=== PATIENT | female | born 1975 | race Caucasian/White ===

== ENCOUNTER → 2016-03-03 | Outpatient (CLI) | payer MEDICAID ==
--- NOTE | 2016-03-03 14:28 | XR ---
EXAMINATION TYPE: XR chest 2V DATE OF EXAM: 03/03/2016 2:24 PM COMPARISON: NONE HISTORY: Chest pain FINDINGS: The lungs are clear and there is no pneumothorax, pleural effusion, or focal pneumonia. Surgical cl ips in the right upper quadrant noted. IMPRESSION: 1. No acute process.
== END | disposition home or self-care (01) ==
LOC: RADXRMAIN 14:06
PROVIDERS: ATTEND Family Medicine
DX: R07.9 Chest pain, unspecified (principal)
CPT/HCPCS: 71020

== ENCOUNTER → 2016-09-24 | Outpatient (CLI) | payer MEDICAID ==
--- NOTE | 2016-09-24 10:09 | MM ---
Reason for exam: screening (asymptomatic). Baseline mammogram. History: Patient is nulliparous. Family history of breast cancer in paternal grandmother at age 80. Took hormonal contraceptives for 12 years. Physical Findings: Nurse did not find any significant physical abnormalities on exam. MG 3D Screening Mammo W/Cad Bilateral CC and MLO view(s) were taken. There are scattered fibroglandular densities. There is no discrete abnormality. These results were verbally communicated with the patient and result sheet given to the patient on 09/24/16. ASSESSMENT: Negative, BI-RAD 1 RECOMMENDATION: Routine screening mammogram of both breasts in 1 year.
== END | disposition home or self-care (01) ==
LOC: RADMAMWWP 07:45
PROVIDERS: ATTEND Family Medicine
DX: Z12.31 Encounter for screening mammogram for malignant neoplasm of breast (principal)
CPT/HCPCS: 77063; G0202

== ENCOUNTER → 2018-09-21 | Outpatient (CLI) | payer MEDICAID ==
[2018-09-21 12:40] LABS: Basophils # (A) 0.1 k/uL (0-0.2); Basophils % (A) 1 %; Eosinophils # (A) 0.2 k/uL (0-0.7); Eosinophils % (A) 2 %; HCT 43.2 % (34.0-46.0); HGB 14.6 gm/dL (11.4-16.0); Lymphocytes # (A) 2.1 k/uL (1.0-4.8); Lymphocytes % (A) 20 %; MCH 30.2 pg (25.0-35.0); MCHC 33.8 g/dL (31.0-37.0); MCV 89.3 fL (80.0-100.0); Mean Platelet Volume 6.9; Monocytes # (A) 0.4 k/uL (0-1.0); Monocytes % (A) 4 %; Neutrophils # (A) 7.6 k/uL (1.3-7.7); Neutrophils % (A) 72 %; Platelet Count 284 k/uL (150-450); RBC 4.84 m/uL (3.80-5.40); RDW 15.1 % (11.5-15.5); WBC 10.5 k/uL (3.8-10.6)
[2018-09-21 14:37] LABS: Erythrocyte Sedimentation Rate 26 mm/hr (0-20)
[2018-09-21 18:12] LABS: African American GFR (CKD) 122.1 (60.0-200.0); Albumin 4.5 g/dL (3.80-4.90); Albumin/Globulin Ratio 1.8 (1.60-3.17); Anion Gap 10.5 mmol/L (4.00-12.00); BUN/Creat Ratio 17.14 Ratio (12.00-20.00); Calcium 9.8 mg/dL (8.7-10.3); Carbon Dioxide 27.5 mmol/L (21.6-31.8); Globulin 2.5 g/dL (1.6-3.3); Magnesium 1.6 mg/dL (1.5-2.4); Potassium 3.8 mmol/L (3.5-5.5); Total Bilirubin 0.4 mg/dL (0.3-1.2)
== END | disposition home or self-care (01) ==
LOC: LABWHC1 11:49
PROVIDERS: ATTEND Family Medicine
DX: R53.83 Other fatigue (principal); R00.2 Palpitations
CPT/HCPCS: 36415; 80053; 82607; 83735; 84443; 85025; 85652

== ENCOUNTER → 2018-09-28 | Outpatient (CLI) | payer MEDICAID ==
--- NOTE | 2018-09-28 14:24 | EST ---
EXERCISE STRESS AGE: 43 SEX: F HT: 65" WT: 250 PROTOCOL: Rubén Stress Test STAGE: II DURATION OF EXERCISE: 6:00 HEART RATE REST: 121 BLOOD PRESSURE REST: 131/99 MAXIMUM HEART RATE ACHIEVED: 177 MAXIMUM BLOOD PRESSURE: 185/79 85% MPHR: 150 100% MPHR: 176 METS: 7.3 INDICATIONS: Palpitations, abnormal EKG. CLINICAL INFORMATION: Baseline EKG revealed normal sinus rhythm without significant ST changes. Patient walked on a standard Rubén protocol for 6 minutes, achieved a maximal heart rate of 170 beats per minute, well above 85% of predicted maximum. Developed fatigue and shortness of breath. Rare PVCs were noted. There was no ST-segment change to indicate ischemia. There was no arrhythmia. By EKG criteria, this is a negative stress test with limited exercise capacity. Patient walked for 6 minutes. Maximal heart rate was nearly 175 beats per minute. MMVIKL / IJN: [id number] /
--- NOTE | 2018-10-04 10:30 | HM ---
HOLTER MONITOR REPORT A 24 HOLTER MONITOR: A 24 Holter monitor shows sinus mechanism with heart rates ranging from 58-164 beats per minute, average 92 beats per minute. Sinus tachycardia noted. No significant arrhythmias. Occasional premature beats. SHAISTA / NICOLEN: [id number] /
--- NOTE | 2018-10-06 09:24 | P.HOLTER ---
48 hour Holter monitor. This is an addendum 48 hour Holter monitor showed heart rates ranging from 58 264 beats a minute average 92 beats a minute. Sinus tachycardia noted. No significant bradyarrhythmias. Occasional premature beats The previous dictation which stated 24 hour Holter monitor was actually a 48 are Holter monitor review and dictation of results
== END | disposition home or self-care (01) ==
LOC: RADNMMAIN 10:39
PROVIDERS: ATTEND Family Medicine
DX: I49.3 Ventricular premature depolarization (principal); R00.0 Tachycardia, unspecified; R06.02 Shortness of breath; R53.83 Other fatigue; R94.31 Abnormal electrocardiogram [ECG] [EKG]
CPT/HCPCS: 93017; 93225; 93226

== ENCOUNTER → 2018-10-12 | Outpatient (CLI) | payer MEDICAID ==
--- NOTE | 2018-10-13 11:32 | ECHOF ---
Referral Reason:R94.31 Abn EKG,R00.2 Palpitations,R53.83 Fatigue MEASUREMENTS -------- HEIGHT: 165.1 cm WEIGHT: 113.4 kg BP: 135/77 IVSd: 1.1 cm (0.6 - 1.1) LVIDd: 3.9 cm (3.9 - 5.3) LVPWd: 1.1 cm (0.6 - 1.1) IVSs: 1.4 cm LVIDs: 2.7 cm LVPWs: 1.4 cm LA Diam: 3.0 cm (2.7 - 3.8) RVIDd: 2.9 cm (< 3.3) LAESV Index (A-L): 15.29 ml/m Ao Diam: 3.2 cm (2.0 - 3.7) AV Cusp: 2.2 cm (1.5 - 2.6) EPSS: 0.8 cm MV E Jah: 0.54 m/s MV DecT: 276 ms MV A Jah: 0.58 m/s MV E/A Ratio: 0.94 MV EF SLOPE: 39.87 mm/s (70 - 150) MV EXCURSION: 11.54 mm (> 18.000) FINDINGS -------- Sinus rhythm. This was a technically adequate study. The left ventricular size is normal. There is borderline concentric left ventricular hypertrophy. Overall left ventricular systolic function is normal with, an EF between 60 - 65 %. The right ventricle is normal in size. Normal LA size by volume 22+/-6 ml/m2. The right atrium is normal in size. The aortic valve is trileaflet and appears structurally normal. The mitral valve is normal. The tricuspid valve appears structurally normal. Trace/mild (physiologic) pulmonic regurgitation. The aortic root size is normal. IVC Not well visulized. There is no pericardial effusion. CONCLUSIONS -------- 1. Sinus rhythm. 2. This was a technically adequate study. 3. The left ventricular size is normal. 4. There is borderline concentric left ventricular hypertrophy. 5. Overall left ventricular systolic function is normal with, an EF between 60 - 65 %. 6. The right ventricle is normal in size. 7. Normal LA size by volume 22+/-6 ml/m2. 8. The right atrium is normal in size. 9. The aortic valve is trileaflet and appears structurally normal. 10. The mitral valve is normal. 11. The tricuspid valve appears structurally normal. 12. Trace/mild (physiologic) pulmonic regurgitation. 13. The aortic root size is normal. 14. IVC Not well visulized. 15. There is no pericardial effusion. GOLD PLATER: Elizabeth Stevens RDCS
== END | disposition home or self-care (01) ==
LOC: RADECHMAIN 15:29
PROVIDERS: ATTEND Family Medicine
DX: I37.1 Nonrheumatic pulmonary valve insufficiency (principal)
CPT/HCPCS: 93306

== ENCOUNTER → 2019-03-07 | Outpatient (CLI) | payer OTHER ==
[2019-03-07 11:22] LABS: Basophils # (A) 0.1 k/uL (0-0.2); Basophils % (A) 1 %; Eosinophils # (A) 0.3 k/uL (0-0.7); Eosinophils % (A) 3 %; HCT 43.2 % (34.0-46.0); HGB 14.5 gm/dL (11.4-16.0); Lymphocytes % (A) 21 %; MCH 30.7 pg (25.0-35.0); MCHC 33.5 g/dL (31.0-37.0); MCV 91.6 fL (80.0-100.0); Mean Platelet Volume 7.1; Monocytes # (A) 0.4 k/uL (0-1.0); Monocytes % (A) 5 %; Neutrophils # (A) 6.3 k/uL (1.3-7.7); Neutrophils % (A) 69 %; Platelet Count 278 k/uL (150-450); RBC 4.72 m/uL (3.80-5.40); WBC 9.2 k/uL (3.8-10.6)
[2019-03-07 16:00] LABS: African American GFR (CKD) 103.9 (60.0-200.0); Albumin 4.6 g/dL (3.80-4.90); Anion Gap 8.5 mmol/L (4.00-12.00); Calcium 9.9 mg/dL (8.7-10.3); Carbon Dioxide 29.5 mmol/L (21.6-31.8); Globulin 2.3 g/dL (1.6-3.3); Non-African American GFR(CKD) 89.7 (60.0-200.0); Potassium 4.1 mmol/L (3.5-5.5); Total Bilirubin 0.4 mg/dL (0.2-1.2); Total Protein 6.9 g/dL (6.2-8.2)
== END | disposition home or self-care (01) ==
LOC: LABWHC1 10:38
PROVIDERS: ATTEND Family Medicine
DX: R00.0 Tachycardia, unspecified (principal)
CPT/HCPCS: 36415; 80053; 84443; 85025

== ENCOUNTER → 2019-10-20 | Outpatient (CLI) | payer OTHER ==
[2019-10-20 12:22] LABS: Basophils # (A) 0.1 k/uL (0-0.2); Basophils % (A) 1 %; Eosinophils # (A) 0.2 k/uL (0-0.7); Eosinophils % (A) 2 %; HCT 42.6 % (34.0-46.0); Lymphocytes # (A) 1.9 k/uL (1.0-4.8); Lymphocytes % (A) 19 %; MCH 30.2 pg (25.0-35.0); MCV 91.5 fL (80.0-100.0); Mean Platelet Volume 7.6; Monocytes # (A) 0.4 k/uL (0-1.0); Monocytes % (A) 4 %; Neutrophils # (A) 7.1 k/uL (1.3-7.7); Neutrophils % (A) 72 %; Platelet Count 258 k/uL (150-450); RBC 4.65 m/uL (3.80-5.40); RDW 13.4 % (11.5-15.5); WBC 9.8 k/uL (3.8-10.6)
[2019-10-20 16:23] LABS: African American GFR (CKD) 121.3 (60.0-200.0); Albumin 4.2 g/dL (3.80-4.90); Albumin/Globulin Ratio 1.62 (1.60-3.17); BUN/Creat Ratio 17.14 Ratio (12.00-20.00); Calcium 9.3 mg/dL (8.7-10.3); Globulin 2.6 g/dL (1.6-3.3); Non-African American GFR(CKD) 104.6 (60.0-200.0); Total Bilirubin 0.4 mg/dL (0.2-1.2); Total Protein 6.8 g/dL (6.2-8.2)
== END | disposition home or self-care (01) ==
LOC: LABWHC1 09:57
PROVIDERS: ATTEND Family Medicine
DX: K52.9 Noninfective gastroenteritis and colitis, unspecified (principal); R11.0 Nausea
CPT/HCPCS: 36415; 80053; 82150; 83690; 84443; 85025

== ENCOUNTER → 2019-11-30 | Outpatient (CLI) | payer OTHER ==
[2019-12-01 06:40] LABS: Gliadin AB IgA, Deaminated NEGATIVE (NEGATIVE); Gliadin AB IgG, Deaminated NEGATIVE (NEGATIVE)
== END | disposition home or self-care (01) ==
LOC: LABWHC1 09:56
PROVIDERS: ATTEND Nurse Practitioner
DX: K52.9 Noninfective gastroenteritis and colitis, unspecified (principal)
CPT/HCPCS: 36415; 83516

== ENCOUNTER 2020-01-19 10:52 | Day surgery (SDC) | payer OTHER ==
[2020-01-18 12:06] VITALS: BMI 41.5
[~2020-01-19 10:52] MED LIST: LACTATED RINGERS 1,000 ML IV SCH
[2020-01-19] MEDS ORDERED: LIDOCAINE 1% (10MG/ML) FOR IV START INTRADERMA ONE (11:25)
[2020-01-19] MEDS ORDERED: PROPOFOL 10 MG/ML 20 ML VIAL IV ONE (12:20)
--- NOTE | 2020-01-19 12:43 | P.PCN ---
Date of Procedure: 01/19/20 Procedure(s) Performed: Brief history: Patient is a pleasant 44-year-old white female scheduled for an elective upper endoscopy as well as colonoscopy as a part of evaluation of chronic persistent nausea and diarrhea for the last 9 months duration. She has daily symptoms with nausea and has loose bowel movements anywhere between 2-3 a day but no rectal bleeding. Procedure performed: Esophagogastroduodenoscopy biopsy Colonoscopy with biopsy Preoperative diagnosis: Chronic persistent nausea Chronic diarrhea [place] [facility] [place] After informed consent was obtained from the patient was brought into the endoscopy unit and IV sedation was administered by anesthesia under continuous monitoring. Initially upper endoscopy was done. The Olympus GF 160 video endoscope was inserted inserted into the mouth and esophagus intubated without any difficulty and was gradually advanced into the stomach and duodenum and carefully examined. These were done from the duodenum to rule out celiac disease. The bulb and second part of the duodenum appeared normal. The scope was then withdrawn into the stomach adequately insufflated with air and upon careful examination the antrum had patchy areas of erythema in the prepyloric area that was biopsied. The body, cardia and fundus appeared normal. The scope was then withdrawn into the esophagus. The GE junction was located at 40 cm to the incisors. It appeared regular with no erythema erosions or ulcerations. Rest of the esophagus appeared normal. Done from the Distal Esophagus. Patient tolerated the procedure well. At this time the patient continued to remain sedation. Initial digital rectal examination was normal. Olympus CF 160 video colonoscope was then inserted into the rectum and gradually advanced to the cecum without any difficulty. Careful examination was performed as the scope was gradually being withdrawn. The prep was excellent. The cecum, ascending colon, transverse colon, descending colon, sigmoid colon and rectum appeared normal. and biopsies were done from ascending and descending colon to rule out microscopic/collagenous colitis. Scattered left-sided diverticulosis seen. Retroflexion was performed in the rectum and no lesions were noted. Patient tolerated the procedure well. Impression: 1. Upper Endoscopy revealed minimal antral gastritis but no evidence of esophagitis or peptic ulcer disease 2. Colonoscopy revealed scattered sigmoid diverticulosis but no evidence of colitis or colorectal neoplasia Recommendations: Findings of this examination were discussed with the patient as well as her family. She was advised to follow with the biopsy results. She will continue with her current medications and will be seen in office in 2
[2020-01-19 12:50] VITALS: RESP 16
[2020-01-19 13:32] VITALS: BP 125/79; PULSE 67
== END 2020-01-19 13:40 | disposition home or self-care (01) ==
LOC: ORWHC2ENDO 10:52
PROVIDERS: ATTEND Internal Medicine Gastroenterology
DX: K29.50 Unspecified chronic gastritis without bleeding (principal); K52.9 Noninfective gastroenteritis and colitis, unspecified; K57.30 Diverticulosis of large intestine without perforation or abscess without bleeding; R60.0 Localized edema; K21.9 Gastro-esophageal reflux disease without esophagitis; I10 Essential (primary) hypertension; Z79.899 Other long term (current) drug therapy; Z88.2 Allergy status to sulfonamides
CPT/HCPCS: 81025; 88305; 45380; 43239; J2704